=== PATIENT | male | born 1940 | race Caucasian/White ===

== ENCOUNTER 2020-01-17 09:36 | Outpatient (CLI) | payer MEDICARE, MEDICAID, SELFPAY ==
--- NOTE | 2020-01-17 10:45 | USCV_ITS ---
Shin Dwyer Age: 79 Gender: M : 1940 Exam Date: 01/17/2020 09:57 Ordering Phys: Jordy Schwartz MD ([email or web address]) Technologist: Phylicia Saldana Exam Location: [facility] [place] Indication: STENOSIS OF CAROTID ARTERY Risk Factors: Previous Vascular Surgery: Right Brachial BP: / Left Brachial BP: / Right Left Velocity (cm/s) Spectral Plaque Velocity (cm/s) Spectral Plaque Syst/Diast Broadening Syst/Diast Broadening 110.30/7.70 Prox CCA 105.80/ 12.10 123.60/7.90 Mid CCA 136.70/ 14.50 107.80/10.50 Distal CCA 105.80/ 8.80 47.40/ 9.30 Prox ICA 106.90/ 19.80 94.80/ 15.40 Mid ICA 106.90/ 20.90 88.80/ 16.10 Distal ICA 104.70/ 18.70 146.00 ECA 261.40 0.77 ICA/CCA 0.78 Antegrade Vertebral Antegrade 69.90/ 7.80 cm/s 40.80/ 7.20 cm/s Tri Subclavian Tri 252.9 185.0 0 0 FINDINGS Mild to moderate diffuse irregular plaques in the common carotid and internal carotid arteries bilaterally, including the bifurcations. Elevated velocity in the left external carotid artery at the proximal segment Antegrade flow in the vertebral arteries bilaterally. CONCLUSIONS Mild to moderate diffuse irregular plaques in the common carotid and internal carotid arteries bilaterally, including the bifurcations. Elevated velocity in the external carotid artery on the left side, suggestive of hemodynamically significant stenosis. No significant stenosis in the internal carotid arteries bilaterally, based on the above findings No significant stenosis, based on the above findings. Dr Jordy Schwartz MD [facility] (Electronically Signed) Final Date: 17 January 2020 16:46 S
== END 2020-01-17 09:37 | disposition home or self-care (01) ==
LOC: RADWPI 09:42
PROVIDERS: Family Provider Family Medicine; PCP Family Medicine; Visit Provider Internal Medicine Cardiovascular Disease
DX: R09.89 Other specified symptoms and signs involving the circulatory and respiratory systems (principal)
CPT/HCPCS: 93880